=== PATIENT | male | born 1980 ===

== ENCOUNTER 2018-03-18 19:12 | Emergency (ER) | payer OTHER ==
[2018-03-18 19:21] VITALS: O2SAT 97
--- NOTE | 2018-03-18 20:58 | ED PDOC ---
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) Exam Limitations: no limitations - History of Present Illness Allergies/Adverse Reactions: Allergies No Known Allergies Allergy (Verified 03/18/18 19:18) Home Medications: Ambulatory Orders Dextran 70/Hypromellose/Pf [Artificial Tears Drops] 1 each OD BID #1 droperette 03/19/18 RX: Prednisone [Deltasone] 20 mg PO DAILY #30 tablet 03/19/18 valACYclovir [Valtrex] 1 gm PO TID #21 tab 03/19/18 Additional Complaint(s): 37 year old male presents to the ED for an evaluation of right side facial numbness, facial drooping and right eye discomfort onset today afternoon (states actualy started yesteday but really noticed it today). Patient reports his tongue feels numb and funny and he has a right-sided headache. He states he has never had anything like this before. Otherwise, patient denies dizziness, weakness or numbness below the neck to lower extremities. PMD: No family provider Past Medical History Reviewed: Historical Data, Nursing Documentation, Vital Signs Vital Signs: Last Vital Signs Temp 98.6 F 03/18/18 19:21 Pulse 89 03/18/18 19:21 Resp 16 03/18/18 19:21 BP 135/88 03/18/18 19:21 Pulse Ox 97 03/18/18 19:21 - Medical History PMH: No Chronic Diseases - Surgical History Surgical History: No Surg Hx - Family History Family History: States: Unknown Family Hx - Social History Current smoker - smoking cessation education provided: No Alcohol: Other (once a month) Drugs: Denies - Home Medications Home Medications: Ambulatory Orders Medication Instructions Recorded Dextran 70/Hypromellose/Pf 1 each OD BID #1 droperette 03/19/18 [Artificial Tears Drops] RX: Prednisone [Deltasone] 20 mg PO DAILY #30 tablet 03/19/18 valACYclovir [Valtrex] 1 gm PO TID #21 tab 03/19/18 - Allergies Allergies/Adverse Reactions: Allergies Allergy/AdvReac Type Severity Reaction Status Date / Time No Known Allergies Allergy Verified 03/18/18 19:18 Review of Systems ROS Statement: Except As Marked, All Systems Reviewed And Found Negative Constitutional: Negative for: Fever Eyes: Positive for: Other (right eye discomfort ) ENT: Positive for: Other (tongue numbness) Cardiovascular: Negative for: Chest Pain Respiratory: Negative for: Cough, Shortness of Breath Skin: Negative for: Rash Neurological: Positive for: Numbness, Headache (right side), Other (facial drooping). Negative for: Weakness Physical Exam - Reviewed Nursing Documentation Reviewed: Yes Vital Signs Reviewed: Yes - Physical Exam Appears: Positive for: Well, Non-toxic, No Acute Distress Head Exam: Positive for: ATRAUMATIC, NORMAL INSPECTION, NORMOCEPHALIC Skin: Positive for: Normal Color, Warm, Dry. Negative for: Rash Eye Exam: Positive for: EOMI, Normal appearance, PERRL ENT: Positive for: Normal ENT Inspection Neck: Positive for: Normal, Painless ROM, Supple. Negative for: Decreased ROM Cardiovascular/Chest: Positive for: Regular Rate, Rhythm. Negative for: Murmur Respiratory: Positive for: Normal Breath Sounds. Negative for: Decreased Breath Sounds, Wheezing, Respiratory Distress Gastrointestinal/Abdominal: Positive for: Normal Exam, Soft. Negative for: Tenderness, Guarding, Rebound Back: Positive for: Normal Inspection Extremity: Positive for: Normal ROM, Other (no neuro deficits of upper or lower extremities ). Negative for: Tenderness, Pedal Edema, Deformity Neurologic/Psych: Positive for: Alert, Oriented (x3), Gait (steady), Facial Droop (right;malone's palsy with decreased sensation on R), Other (when right eyebrow raised it is aymmetric as compared to left. he cant raise the R one, that is consistent w bells.). 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 No mass lesion. No CT evidence for acute territorial infarct. No midline shift or extra-axial collections. VENTRICLES: No hydrocephalus. ORBITS: The orbits are unremarkable. SINUSES AND MASTOIDS: The paranasal sinuses and mastoid air cells are clear. BONES: No fracture. SOFT TISSUES: Unremarkable. IMPRESSION: No acute intracranial abnormality. 0115 Labs reviewed and show no significant abnormality. pt neuro exam shows no neuro deficits below the face. pt aware of results/need for follow up with neuro. 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 Patient is stable for discharge and advised to follow up with a neurologist. Scribe Attestation: Documented by Yin Santana, acting as a scribe for Rosita Rodriguez MD. Provider Scribe Attestation: All medical record entries made by the Scribe were at my direction and personally dictated by me. I have reviewed the chart and agree that the record accurately reflects my personal performance of the history, physical exam, medical decision making, and the department course for this patient. I have also personally directed, reviewed, and agree with the discharge instructions and disposition. Disposition - Clinical Impression Clinical Impression: Malone's palsy - Patient ED Disposition Is Patient to be Admitted: No Counseled Patient/Family Regarding: Studies Performed, Diagnosis, Need For Followup - Disposition Referrals: [facility] [Outside] [facility] [Outside] Hamida Maravilla MD [Medical Doctor] - Disposition: Routine/Home Disposition Time: 01:15 Condition: IMPROVED Additional Instructions: follow up with neurologist as instructed in 1-2 days return to the ED with any worsening or concerning symptoms Prescriptions: Dextran 70/Hypromellose/Pf [Artificial Tears Drops] 1 each OD BID #1 droperette RX: Prednisone [Deltasone] 20 mg PO DAILY #30 tablet valACYclovir [Valtrex] 1 gm PO TID #21 tab Instructions: Malone's Palsy (DC) Forms: [employer] (Tajik), [employer] (Bulgarian) Print Language: TAJIK
[2018-03-19 00:44] LABS: BASO # 0.1 K/uL (0.0-0.2); BASO % 0.9 % (0.0-2.0); EOS # 0.1 K/uL (0.0-0.7); EOS % 1.4 % (0.0-4.0); HEMOGLOBIN 15.2 g/dL (12.0-18.0); LYMPH # 2.3 K/uL (1.0-4.3); LYMPH % 27.6 % (20.0-40.0); MEAN CELL VOLUME 93.3 fl (80.0-94.0); MEAN CORPUSCULAR HEMOGLOBIN 32.5 pg (27.0-31.0); MEAN CORPUSCULAR HGB CONC 34.8 g/dL (33.0-37.0); MEAN PLATELET VOLUME 8.4 fl (7.2-11.7); MONO # 0.8 K/uL (0.0-0.8); NEUT # 5.1 K/uL (1.8-7.0); NEUT % 61.1 % (50.0-75.0); NRBC % 0.1 % (0.0-0.0); RBC 4.68 Mil/uL (4.40-5.90); RED CELL DISTRIBUTION WIDTH 12.5 % (11.5-14.5); WHITE BLOOD COUNT 8.4 K/uL (4.8-10.8)
[2018-03-19 00:56] LABS: ALB/GLOB RATIO 1.3 (1.0-2.1); ALBUMIN 4.3 g/dL (3.5-5.0); ALT/SGPT 73 U/L (21-72); AST/SGOT 43 U/L (17-59); BLOOD UREA NITROGEN 16 mg/dl (9-20); CALCIUM 9.3 mg/dL (8.4-10.2); GFR NON-AFRICAN AMERICAN > 60
[2018-03-19 01:26] VITALS: BP 132/53; PULSE 70; RESP 18; TEMP 98.3
--- NOTE | 2018-03-19 10:05 | CT ---
Date of service: 2018-03-18 20:04:21 PROCEDURE: CT HEAD WITHOUT CONTRAST. HISTORY: headache COMPARISON: None available. TECHNIQUE: Axial computed tomography images were obtained through the head/brain without intravenous contrast. Radiation dose: Total exam DLP = 779.97 mGy-cm. This CT exam was performed using one or more of the following dose reduction techniques: Automated exposure control, adjustment of the mA and/or kV according to patient size, and/or use of iterative reconstruction technique. FINDINGS: HEMORRHAGE: No intracranial hemorrhage. BRAIN: Greene-white matter differentiation is preserved. There is no mass, mass effect or abnormal extra-axial fluid collection. There is no territorial infarction. The midline sagittal structures are normal. VENTRICLES: The ventricles are normal in size, shape and configuration. CALVARIUM: There is no calvarial fracture or extracranial soft tissue swelling. PARANASAL SINUSES: Predominantly clear. MASTOID AIR CELLS: Predominantly clear. OTHER FINDINGS: None. IMPRESSION: No acute intracranial abnormality. A preliminary report was provided by [employer].
== END 2018-03-19 01:41 | disposition home or self-care (01) ==
LOC: H.ER 19:12
DX: G51.0 Bell's palsy (principal)